=== PATIENT | female | born 1940 | race Caucasian/White ===

== ENCOUNTER 2017-07-13 14:40 | Emergency (ER) | payer OTHER ==
[2017-07-13 14:49] VITALS: BP 135/95; PULSE 85; TEMP 98; BMI 27.4
[2017-07-13] MEDS ORDERED: KETOROLAC TROMETHAMINE 60 MG/2 ML VIAL IM ONE (15:16)
[2017-07-13] MEDS ORDERED: KETOROLAC TROMETHAMINE 30 MG/1 ML VIAL ONE (15:20)
--- NOTE | 2017-07-13 15:21 | PDOC ---
History of Present Illness - History of Present Illness Initial Comments: 07/13/17 15:37 The patient is a 76 year old female, with no significant past medical history, who presents to the emergency department with her sister for left shoulder pain and decreased range of motion for 1 week. Patient states that for the past week she has noticed that she has been having some trouble raising her left arm and has since worsened as of last night. She states that the pain occurs primarily in her right shoulder but does radiate down her back. She denies injuring her left arm/shoulder but is unable to recall whether she lifted anything heavy recently. She states that the pain essentially "came out of nowhere". She states that she has experienced a frozen shoulder in the past which was treated with a shot of cortisone. It is to be noted that she is right hand dominant. She has an orthopedist back in [place] where she is from and is currently visiting her sister in [place]. She took a Vicodin this morning for the pain. She denies recent fevers, chills, headache or dizziness. She denies recent nausea, vomit, diarrhea or constipation. She denies recent dysuria, frequency, urgency or hematuria. She denies recent chest pain or shortness of breath. Allergies: NKA Past surgical history: None reported. Social history: Nonsmoker. Denies EtOH use and recreational drug use. <Blanca Adams - Last Filed: 07/13/17 15:37> - History of Present Illness Initial Comments: 07/13/17 16:16 Physical exam: Alert and oriented well-developed well-nourished no acute distress cheerful and cooperative Afebrile, vital signs normal Left shoulder: No obvious deformity. No erythema or warmth. Point tenderness over the insertion of the biceps tendon on the coracoid. No passive limited range of motion. However, active limited range of motion is limited to approximately 30. Pulses full, no distal sensory or motor deficits. Impression: Rotator cuff tendinitis, possibly calcific. Unlikely that this could be infectious, however, joint aspiration is probably advisable. Plan: The patient is visiting from [place], and is returning tomorrow. She has an orthopedist there. She declines attempted aspiration now, stating that she will see her orthopedist for definitive treatment when she returns in one to 2 days. Analgesic was given. She was again advised that although it is unlikely, if there is infection and it is not diagnosed and treated in a timely fashion the permanent disability could develop. She seems to understand and agree to timely follow-up. Discharge more comfortable after treatment, with a sling for support, to follow-up in one or 2 days with her orthopedist. <Héctor Sharma - Last Filed: 07/13/17 16:20> - General Chief Complaint: Pain, Acute Stated Complaint: LEFT SHOULDER PAIN Time Seen by Provider: 07/13/17 14:49 Past History <Blanca Adams - Last Filed: 07/13/17 15:37> - Past Medical History COPD: No - Suicide/Smoking/Psychosocial Hx Smoking History: Never smoked Hx Alcohol Use: Yes (SOCIAL) Drug/Substance Use Hx: No Substance Use Type: None <Héctor Sharma - Last Filed: 07/13/17 16:20> - Past Medical History Allergies/Adverse Reactions: Allergies Allergy/AdvReac Type Severity Reaction Status Date / Time No Known Allergies Allergy Verified 07/13/17 14:43 Home Medications: Ambulatory Orders Diclofenac Sodium 50 mg PO TID #20 tablet. 07/13/17 Tramadol HCl 50 mg PO QID PRN #20 tablet MDD 4 07/13/17 Review of Systems - Review of Systems Comments:: 07/13/17 15:47 CONSTITUTIONAL: Absent: fever, no chills, no fatigue EYES: Absent: visual changes ENT: Absent: ear pain, no sore throat CARDIOVASCULAR: Absent: chest pain, no palpitations RESPIRATORY: Absent: cough, no SOB GI: Absent: abdominal pain, no nausea, no vomiting, no constipation, no diarrhea GENITOURINARY: Absent: dysuria, no frequency, no hematuria MUSCULOSKELETAL: Present: right shoulder swelling and pain, radiates down back. Absent: no myalgia <Blanca Adams - Last Filed: 07/13/17 15:37> *Physical Exam - Vital Signs Last Vital Signs Temp Pulse Resp BP Pulse Ox 98.0 F 85 16 135/95 98 07/13/17 14:42 07/13/17 14:42 07/13/17 14:42 07/13/17 14:42 07/13/17 14:42 <Blanca Adams - Last Filed: 07/13/17 15:37> - Vital Signs Last Vital Signs Temp Pulse Resp BP Pulse Ox 98.0 F 85 16 135/95 98 07/13/17 14:42 07/13/17 14:42 07/13/17 14:42 07/13/17 14:42 07/13/17 14:42 <Héctor Sharma - Last Filed: 07/13/17 16:20> ED Treatment Course - Medications Given in the ED: ED Medications Discontinued Medications Generic Name Dose Route Start Last Admin Trade Name Freq PRN Reason Stop Dose Admin Ketorolac Tromethamine 30 mg 07/13/17 15:16 07/13/17 15:20 Toradol Injection - IM 07/13/17 15:17 30 mg ONCE ONE Administration <Blanca Adams - Last Filed: 07/13/17 15:37> *DC/Admit/Observation/Transfer - Attestations Scribe Attestion: 07/13/17 15:49 Documentation prepared by Blanca Adams, acting as medical legal investigator for Héctor Bonds MD. <Blanca Adams - Last Filed: 07/13/17 15:37> - Discharge Dispostion Admit: No <Héctor Sharma - Last Filed: 07/13/17 16:20> Diagnosis at time of Disposition: Tendinitis of shoulder Qualifiers: Laterality: left Qualified Code(s): M75.82 - Other shoulder lesions, left shoulder - Discharge Dispostion Disposition: HOME Condition at time of disposition: Stable - Prescriptions Prescriptions: Diclofenac Sodium 50 mg PO TID #20 tablet. Tramadol HCl 50 mg PO QID PRN #20 tablet MDD 4 PRN Reason: Pain - Referrals Referrals: Henrique Guerra MD [Staff Physician] - - Patient Instructions Printed Discharge Instructions: DI for Shoulder Tendinopathy Additional Instructions: Rest, ice, sling for one or 2 days, then begin gentle range of motion exercises as tolerated It is unlikely, but possible that you have an infection in the shoulder joint. If not diagnosed and treated in a timely manner, this could cause her permanent disability. Therefore you are encouraged to see an grant specialist as soon as possible for further examination of the joint and possible withdrawal of fluid for analysis. If you are returning to [place], you should immediately see your orthopedist there upon your arrival
== END 2017-07-13 15:33 | disposition home or self-care (01) ==
LOC: FER 14:40
PROC: 3E0333Z Introduction of Anti-inflammatory into Peripheral Vein, Percutaneous Approach (ICD-10-PCS; principal; 2017-07-13)
DX: M75.82 Other shoulder lesions, left shoulder (principal)
CPT/HCPCS: 99282-25